=== PATIENT | female | born 1955 | race Caucasian/White ===

== ENCOUNTER 2020-07-03 05:24 | Emergency (ER) | payer BC ==
[~2020-07-03] VITALS: Ht 175.3 cm; Wt 61.4 kg
[2020-07-03 06:10] LABS: CLARITY,URINE SLIGHTLY CLOUDY (Clear); COLOR,URINE YELLOW (Yellow); GLUCOSE, URINE NEGATIVE (Neg); KETONES,URINE TRACE mg/dl (Neg); LEUKOCYTE ESTERASE ,URINE SMALL (Neg); NITRITES, URINE NEGATIVE (Neg); OCCULT BLOOD,URINE LARGE (Neg); PROTEIN,URINE NEGATIVE (Neg); UROBILINOGEN,URINE 0.2 E.U/dL (0.2-1.0)
[2020-07-03] MEDS ORDERED: ketorolac trometh. 30mg/ml inj. IV ONE (06:10)
[2020-07-03] MEDS ORDERED: normal saline 1000ml 1,000 ML IV ONE (06:10)
[2020-07-03] MEDS ORDERED: morphine 4 MG/ML inj SYRINge IV ONE (06:10)
[2020-07-03] MEDS ORDERED: ondansetron/PF 4mg/2ml inj IV ONE (06:10)
[2020-07-03 06:17] LABS: UA COLLECTION TYPE CLN CATCH MIDSTREAM
[2020-07-03 06:20] LABS: WBC,URINE 20-30 /HPF (0-4)
[2020-07-03 06:21] LABS: BACTERIA,URINE NONE SEEN /HPF (Neg); CAL OXALATE CRYSTALS 1+ /HPF (NEGATIVE); RBC,URINE 50-100 /HPF (0-2); SQUAMOUS EPITHELIAL CELL,UR FEW /LPF (FEW)
[2020-07-03 06:23] LABS: BASOPHILS % (AUTO) 0.8 % (0-1); EOSINOPHILS # (AUTO) 0.1 X10'3 (0-0.9); EOSINOPHILS % (AUTO) 1.7 % (0-6); HEMATOCRIT 39.1 % (35.0-45.0); HEMOGLOBIN 12.9 g/dl (12.0-16.0); LYMPHOCYTES # (AUTO) 1.2 X10'3 (1.1-4.8); LYMPHOCYTES % (AUTO) 33.7 % (21-51); MEAN CORPUSCULAR HEMOGLOBIN 30.7 PG (27.0-31.0); MONOCYTES # (AUTO) 0.3 X10'3 (0-0.9); NEUTROPHILS # (AUTO) 2.1 X10'3 (1.8-7.7); NEUTROPHILS % (AUTO) 56.8 % (42-75); PLATELET COUNT 199 X10'3 (140-440); RED BLOOD COUNT 4.21 X10'6 (4.20-5.60); RED CELL DISTRIBUTION WIDTH 13.2 % (11.5-14.5); WHITE BLOOD COUNT 3.7 X10'3 (4.5-11.0)
[2020-07-03 06:31] LABS: ALANINE AMINOTRANSFERASE 25 U/L (12-78); ALBUMIN 3.7 G/DL (3.4-5.0); ALBUMIN/GLOBULIN RATIO 1.2 (1.1-1.5); ALKALINE PHOSPHATASE 67 IU/L (46-116); ANION GAP 8 (8-16); ASPARTATE AMINO TRANSFERASE 18 U/L (10-37); BILIRUBIN,TOTAL 0.4 MG/DL (0.1-1.0); BLOOD UREA NITROGEN 10 MG/DL (7-18); BUN/CREATININE RATIO 13.5 (6.6-38.0); CALCIUM 9.2 MG/DL (8.5-10.1); CHLORIDE 109 MMOL/L (99-107); CREATININE 0.74 MG/DL (0.40-0.90); GLUCOSE 120 MG/DL (70-104); LIPASE 129 U/L (73-393); POTASSIUM 3.6 MMOL/L (3.5-5.1); SODIUM 147 MMOL/L (135-145); TOTAL CARBON DIOXIDE 29.7 MMOL/L (24-32); TOTAL PROTEIN 6.7 G/DL (6.4-8.2); eGFR 79 ML/MIN
[2020-07-03] MEDS ORDERED: CefTRIAXone/D5W-Rocephin 1gm 50 ML IV ONE (06:35)
[2020-07-03] MEDS ORDERED: CIPR-202 PO (06:41)
[2020-07-03] MEDS ORDERED: ONDA4TAB6 PO (06:43)
[2020-07-03] MEDS ORDERED: HYDR-3965 PO (06:43)
[2020-07-03 07:37] VITALS: BP 111/66
== END 2020-07-03 07:40 | disposition home or self-care (01) ==
LOC: ER 05:25
DX: R31.9 Hematuria, unspecified (principal); R30.0 Dysuria; R10.84 Generalized abdominal pain; R11.2 Nausea with vomiting, unspecified; Z88.0 Allergy status to penicillin; Z79.2 Long term (current) use of antibiotics; Z79.899 Other long term (current) drug therapy
CPT/HCPCS: 36415; 80053; 81001; 83690; 85025; 87088; 96361; 96365; 99284; J0696; J7030